=== PATIENT | male | born 2000 | race Two or more races ===

== ENCOUNTER 2019-12-06 14:11 | Emergency (ER) | payer BC, OTHER ==
[~2019-12-06] VITALS: Ht 172.7 cm; Wt 64.4 kg
[2019-12-06] MEDS ORDERED: MAALOX/HYOSCYAMINE/LIDOCAINE 45 ML BTL PO ONE (15:00)
[2019-12-06] MEDS ORDERED: MAALOX/HYOSCYAMINE/LIDOCAINE 45 ML BTL ONE (15:02)
--- NOTE | 2019-12-06 15:05 | NUR ---
MEDS ADMIN PER SEP.
[2019-12-06 15:07] LABS: BASOPHILS # (AUTO) 0.02 x10^3/uL (0-0.1); BASOPHILS % (AUTO) 0 % (0-1); EOSINOPHILS % (AUTO) 0 % (1-7); LYMPHOCYTES # (AUTO) 0.88 x10^3/uL (1-3.4); LYMPHOCYTES % (AUTO) 15 % (22-44); MD NO; MEAN CORPUSCULAR HEMOGLOBIN 31.7 pg (27.5-34.5); MEAN CORPUSCULAR HGB CONC 33.9 g/dL (33.2-36.2); MEAN CORPUSCULAR VOLUME 93.4 fL (81-97); MEAN PLATELET VOLUME 8.1 fL (7.4-10.4); MONOCYTES # (AUTO) 0.38 x10^3/uL (0.2-0.8); MONOCYTES % (AUTO) 7 % (2-9); NEUTROPHILS # (AUTO) 4.47 x10^3/uL (1.8-6.8); NEUTROPHILS % (AUTO) 78 % (42-75); PLATELET COUNT 178 x10^3/uL (130-400); RED BLOOD COUNT 5.25 x10^6/uL (4.38-5.82); RED CELL DISTRIBUTION WIDTH 12.5 % (9.4-14.8)
[2019-12-06 15:18] LABS: ALANINE AMINOTRANSFERASE 19 U/L (12-78); ALBUMIN 4.9 g/dL (3.4-5.0); ANION GAP 8 mmol/L (5-15); CALCIUM 9.9 mg/dL (8.5-10.1); CHLORIDE 105 mmol/L (98-107); CREATININE 1.09 mg/dL (0.7-1.3)
[2019-12-06 15:20] LABS: ALKALINE PHOSPHATASE 68 U/L (45-117); BILIRUBIN,TOTAL 1.3 mg/dL (0.2-1.0); TOTAL PROTEIN 8.7 g/dL (6.4-8.2)
--- NOTE | 2019-12-06 16:09 | NUR ---
ALL RESULTS ARE BACK AT THIS TIME. CHART UP FOR RECHECK.
[2019-12-06 16:29] VITALS: BP 124/67
--- NOTE | 2019-12-06 16:30 | NUR ---
PT STATES HE FEELS MUCH BETTER AFTER THE MEDS.
== END 2019-12-06 17:10 | disposition home or self-care (01) ==
LOC: ED 16:17
DX: K29.00 Acute gastritis without bleeding (principal); R11.2 Nausea with vomiting, unspecified
CPT/HCPCS: 36415; 76700; 80053; 83690; 85025; 99284